=== PATIENT | male | born 1960 | race Caucasian/White ===

== ENCOUNTER 2020-12-26 10:11 | Outpatient (CLI) | payer OTHER, SELFPAY ==
--- NOTE | ~2020-12-26 | XR_ITS ---
XR lumbar spine 2-3V DATE: 12/26/2020 10:52 INDICATION: Chronic low back pain TECHNIQUE: AP, lateral, coned lateral lumbosacral views COMPARISON: None FINDINGS: There is slight dextroscoliosis of the thoracolumbar spine. Diffuse osteopenia. No fracture or bone destruction is evident. The lumbar and included T11 and T12 pedicles are intact. There is grade 1 anterolisthesis at L5-S1 apparently due to prominent degenerative change at the apop hyseal joints. Lumbar and upper sacral interspaces are relatively preserved. The sacroiliac joints are normal. IMPRESSION: Osteopenia Minimal dextroscoliosis Grade 1 anterolisthesis at L5-S1, apparently secondary to degenerative change at the apophyseal joint s Reviewed, dictated and finalized at location A. IMPRESSION: Osteopenia Minimal dextroscoliosis Grade 1 anterolisthesis at L5-S1, apparently secondary to degenerative change a t the apophyseal joints
--- NOTE | ~2020-12-26 | XR_ITS ---
XR thoracic spine 3V DATE: 12/26/2020 10:52 INDICATION: Chronic thoracic back pain TECHNIQUE: AP, lateral, swimmer views COMPARISON: None FINDINGS: There is levoscoliosis of the upper thoracic spine and minimal dextroscoliosis of the lower thoracic spine. No fracture or dislocation. The thoracic pedicles are intact. No bone destruction. There is prominent degenerative spurring of the lower thoracic spine. No paraspinal soft tissue thick ening. IMPRESSION: Scoliosis and degenerative spurring Reviewed, dictated and finalized at location A.
--- NOTE | ~2020-12-26 | XR_ITS ---
XR cervical spine 4-5V DATE: 12/26/2020 10:52 INDICATION: Chronic neck pain TECHNIQUE: AP, open-mouth, odontoid, lateral views COMPARISON: 10/18/2018 CT cervical spine FINDINGS: There is reversal of cervical curvature. C1 and C2 are normally aligned and the odontoid process is intact. No fracture or dislocation or lock ed facet or prevertebral soft tissue swelling is evident. There is mild degenerative disease and prominent anterior spurring at C3-4. There is severe degenerative disc disease at C4-5, C5-6 and C6-7. There is prominent anterior and pos terior spurring at each of these levels. There is prominent degenerative change at the apophyseal joints throughout the cervical spine and pro minent uncovertebral joint spurring at the mid and lower cervical spine. IMPRESSION: Reversal of cervical curvature Extensive degenerative changes, particularly at the mid and lower cervical spine Reviewed, dictated and finalized at location A. IMPRESSION: Reversal of cervical curvature Extensive degenerative changes, particularly at the mid and lower cervical spin e
== END 2020-12-26 10:12 | disposition home or self-care (01) ==
PROVIDERS: PCP Physician Assistant; Visit Provider Physician Assistant
DX: M85.88 Other specified disorders of bone density and structure, other site (principal); M41.9 Scoliosis, unspecified; M50.30 Other cervical disc degeneration, unspecified cervical region
CPT/HCPCS: 72050; 72072; 72100

== ENCOUNTER 2021-02-14 14:11 | Outpatient (CLI) | payer OTHER, SELFPAY ==
--- NOTE | ~2021-02-14 | MR_ITS ---
EXAMINATION: MR cervical spine wo con DATE: 02/14/2021 15:58 INDICATION: Spinal stenosis with neck and right shoulder pain TECHNIQUE: Magnetic resonance imaging (MRI) of the cervical spine was performed without intravenous c ontrast. Sequences included sagittal T2-weighted FSE, sagittal T2-weighted FS FSE, sagittal T1-weight ed FSE, sagittal fluid sensitive FSE STIR, axial MERGE and axial T2-weighted FSE. COMPARISON: None FINDINGS: Evaluation is limited by some degree of motion artifact on all sequences. There is reversal of the no rmal cervical lordosis. 2 mm retrolisthesis C6 on C7. Vertebral body heights are normal. There is pr ominent marrow and surrounding soft tissue edema at the right C2-C3 facet joint. Additional mild scat tered fibrofatty degenerative endplate changes at several levels in the cervical spine. Marrow signal is otherwise normal. Moderate disc height loss at C4-C5 and C5-C6 and mild disc height loss at C2-C3 , C3-C4 and C6-C7. There is a small focus of increased T2 signal at the left side of the cord at the level of C5-C6. The following disc levels are specifically discussed: C2-C3: The disc does not extend beyond the endplate margin. There is mild right uncovertebral joint o steoarthritis. There is moderate left and severe right facet joint osteoarthritis, the latter with pr ominent edema as previously detailed. There is mild bilateral neural foraminal stenosis. There is no central canal stenosis. C3-C4: Disc is mildly bulging. There is mild to moderate bilateral uncovertebral joint osteoarthritis . There is moderate right and severe left facet joint osteoarthritis. There is severe left and modera te right neural foraminal stenosis. There is mild central canal stenosis. C4-C5: Asymmetric to the left posterior disc osteophyte complex. There is severe bilateral uncoverteb ral joint osteoarthritis. There is moderate right and severe left facet joint osteoarthritis. There i s severe bilateral neural foraminal stenosis. There is moderate central canal stenosis measuring 8 mm AP in the mid sagittal plane, with deformation of the cord and with effacement of the surrounding CS F signal. C5-C6: Asymmetric to the left posterior disc osteophyte complex. There is severe bilateral uncoverteb ral joint osteoarthritis. There is moderate bilateral facet joint osteoarthritis. There is severe lef t and moderate right neural foraminal stenosis. There is moderate central canal stenosis also measuri ng 8 mm AP in the mid sagittal plane and with deformation of the cord and effacement of the surroundi ng CSF signal. The focal increased signal seen at this level on the left side of the cord on the STIR images is likely related to myelomalacia. C6-C7: Posterior disc osteophyte complex including annular fissure and disc extrusion with disc mater ial extending up to 3 mm caudal to the level of the superior endplate of C7. There is severe bilatera l uncovertebral joint osteoarthritis. There is moderate bilateral facet joint osteoarthritis. There i s severe bilateral neural foraminal stenosis. There is moderate central canal stenosis measuring 9 mm AP in the mid sagittal plane with effacement of the CSF signal surrounding the cord. C7-T1: The disc does not extend beyond the endplate margin. There is mild bilateral uncovertebral alia nt osteoarthritis. There is moderate right and severe left facet joint osteoarthritis. There is mild right and moderate left neural foraminal stenosis. There is no central canal stenosis. IMPRESSION: 1. Severe cervical spondylosis with small focus of increased T2 signal at the left side of the cord a t the level of C5-C6 most likely related to myelomalacia secondary to moderate left-sided predominant central canal stenosis. 2. Prominent likely reactive joint centered marrow and soft tissue edema associated with severe right -sided facet osteoarthritis at C2-C3. 3. Study
--- NOTE | ~2021-02-14 | MR_ITS ---
EXAMINATION: MR lumbar spine wo con DATE: 02/14/2021 15:59 INDICATION: Lumbar spinal stenosis. TECHNIQUE: Magnetic resonance imaging (MRI) of the lumbar spine was performed without intravenous con trast. Sequences included sagittal T2-weighted FSE, sagittal T2-weighted FS FSE, sagittal T1-weighted FSE, and axial T2-weighted FSE. COMPARISON: Lumbar spine radiographs 12/26/2020 FINDINGS: There is 8 degrees dextrocurvature of thoracolumbar spine. There is 3 mm anterolisthesis of L4 on L5 and 6 mm anterolisthesis of L5 on S1. There is mild chronic anterior wedging of T11 and T12 vertebral bodies. Intervertebral disc heights are normal. The following disc levels are specifically discussed: L1-L2: The disc does not extend beyond the endplate margin. There is mild bilateral facet joint osteo arthritis. There is no neural foraminal stenosis. There is no central canal stenosis. L2-L3: The disc does not extend beyond the endplate margin. There is mild bilateral facet joint osteo arthritis. There is no neural foraminal stenosis. There is no central canal stenosis. L3-L4: The disc is mildly bulging. There is severe right and moderate left facet joint osteoarthritis . There is mild bilateral neural foraminal stenosis. There is mild central canal stenosis. L4-L5: The disc is bulging. There is severe bilateral facet joint osteoarthritis. There is mild bilat eral neural foraminal stenosis. There is mild central canal stenosis. L5-S1: The disc does not extend beyond the endplate margin. There is severe bilateral facet joint ost eoarthritis. There is mild bilateral neural foraminal stenosis. There is no central canal stenosis. IMPRESSION: 1. Mild lumbar spondylosis. Reviewed, dictated and finalized at location A. IMPRESSION: 1. Mild lumbar spondylosis.
== END 2021-02-14 14:12 | disposition home or self-care (01) ==
PROVIDERS: PCP Physician Assistant; Visit Provider Physician Assistant
DX: M48.00 Spinal stenosis, site unspecified (principal); M47.892 Other spondylosis, cervical region; M47.896 Other spondylosis, lumbar region
CPT/HCPCS: 72141; 72148

== ENCOUNTER 2023-10-15 16:03 | Outpatient (CLI) | payer OTHER, SELFPAY ==
--- NOTE | ~2023-10-15 | CT_ITS ---
EXAMINATION:CT lung screening DATE: 10/15/2023 16:43 INDICATION: Personal history of nicotine dependence. Current smoker with 45 pack year history. TECHNIQUE: Computed tomography (CT) of the chest was performed without intravenous contrast. Automate d exposure control and iterative reconstruction technique were employed. The dose-length product (DLP ) was 66.47 mGy-cm. COMPARISON: None. FINDINGS: There is mild scarring at the lung apices. There is mild emphysema. There is minimal atelec tasis bilaterally. A calcified left lung nodule and calcified left hilar lymph nodes are consistent w ith old granulomatous disease. No pleural effusion. The heart size is normal. There are coronary nikolay ry calcifications. No pericardial effusion. There is diffuse hepatic steatosis. There is mild thoraci c spondylosis. IMPRESSION: 1. Lung-RADS category 2: Benign appearance or behavior. Continue annual screening with noncontrast lo w-dose chest CT in 12 months. Reviewed, dictated and finalized at location E. [employer] IMPRESSION: 1. Lung-RADS category 2: Benign appearance or behavior. Continue annual screeni ng with noncontrast low-dose chest CT in 12 months.
== END 2023-10-15 16:04 | disposition home or self-care (01) ==
LOC: ANHIMG 16:05
PROVIDERS: PCP Physician Assistant; Visit Provider Physician Assistant
DX: Z12.2 Encounter for screening for malignant neoplasm of respiratory organs (principal); F17.210 Nicotine dependence, cigarettes, uncomplicated
CPT/HCPCS: 71271

== ENCOUNTER 2024-03-22 07:46 | Outpatient (CLI) | payer OTHER, SELFPAY ==
--- NOTE | ~2024-03-22 | XR_ITS ---
Clinical Indication: Chronic cough PA and lateral views of the chest: Comparison: None Findings: The lungs are clear, without evidence of focal consolidation or pleural effusion. Probable COPD. Cardiomediastinal silhouette is within normal limits. Bones and soft tissues are unremarkable. Impression: COPD. Clear lungs. Reviewed, dictated and finalized at location . Impression: COPD. Clear lungs.
--- NOTE | ~2024-03-22 | US_ITS ---
Limited Abdominal Sonogram: Real-time sonographic imaging of the right upper quadrant was performed. Clinical History: Abnormal liver enzymes Findings: The liver appears echogenic, with no evidence of mass lesion or bile duct dilatation. Main portal vein demonstrates normal direction of flow. The gallbladder is well distended, and appears no rmal with no evidence of gallstone or wall thickening. The common bile duct measures 2 mm. The visua lized pancreas, aorta, and IVC are unremarkable. Impression: Diffuse fatty infiltration of the liver. Reviewed, dictated and finalized at location M. Impression: Diffuse fatty infiltration of the liver.
== END 2024-03-22 07:47 | disposition home or self-care (01) ==
PROVIDERS: PCP Physician Assistant; Visit Provider Physician Assistant
DX: R05.3 Chronic cough (principal); R74.01 Elevation of levels of liver transaminase levels; K76.0 Fatty (change of) liver, not elsewhere classified; W19.XXXA Unspecified fall, initial encounter; Z87.891 Personal history of nicotine dependence
CPT/HCPCS: 71046; 76705